=== PATIENT | female | born 1950 | race Caucasian/White ===

== ENCOUNTER 2017-01-31 21:59 | Emergency (ER) | payer OTHER, MEDICARE ==
[~2017-01-31] VITALS: Ht 167.6 cm; Wt 115.7 kg
[~2017-01-31 21:59] MED LIST: ESOM2.5S PO; LIP10 PO
[2017-01-31 22:06] VITALS: BP_SYST 160
[2017-01-31 23:46] VITALS: BP_SYST 152
== END 2017-01-31 23:46 | disposition home or self-care (01) ==
LOC: SED 21:59
DX: S80.812A Abrasion, left lower leg, initial encounter (principal); K21.9 Gastro-esophageal reflux disease without esophagitis; I10 Essential (primary) hypertension; I48.91 Unspecified atrial fibrillation; E78.00 Pure hypercholesterolemia, unspecified; Z90.710 Acquired absence of both cervix and uterus; Z88.0 Allergy status to penicillin; W50.4XXA Accidental scratch by another person, initial encounter; Y93.89 Activity, other specified; Y92.89 Other specified places as the place of occurrence of the external cause; Y99.8 Other external cause status
CPT/HCPCS: 99283

== ENCOUNTER 2017-12-14 16:32 | Inpatient (IN) | payer OTHER, MEDICARE ==
[~2017-12-14] VITALS: Ht 167.6 cm; Wt 112.9 kg
[2017-12-14 18:07] VITALS: BP_SYST 134
[2017-12-14] MEDS ORDERED: LIP10 PO (18:45)
[2017-12-14] MEDS ORDERED: COR6.25 PO (18:45)
[2017-12-14] MEDS ORDERED: ALPR0.25 PO (18:46)
[2017-12-14] MEDS ORDERED: ESOM20TA PO (18:46)
[2017-12-14] MEDS ORDERED: RIVA20TA PO (18:46)
[2017-12-14] MEDS ORDERED: LOSA1TAB3 PO (18:46)
[2017-12-14] MEDS ORDERED: VANCOMYCIN HCL 1 GM/NS PREMIX 250 ML IV SCH (19:45)
[2017-12-14] MEDS ORDERED: NS 500 ML IV ONE (19:45)
[2017-12-14 20:00] VITALS: BP_SYST 120
[2017-12-14] MEDS ORDERED: VANCOMYCIN HCL 1000 MG/VIAL IV ONE (20:18)
[2017-12-14] MEDS ORDERED: LEVOFLOXACIN 500 MG/D5W 100 ML IV ONE (20:19)
[2017-12-14 20:25] LABS: BASOPHILS # (AUTO) 0.1 K/uL (0.0-0.2); BASOPHILS % (AUTO) 0.6 % (0.0-2.0); EOSINOPHILS # (AUTO) 0.1 K/uL (0.0-0.4); EOSINOPHILS % (AUTO) 1.4 % (0.0-4.0); HEMATOCRIT 33.7 % (36-48); HEMOGLOBIN 10.9 g/dL (12.0-16.0); LYMPHOCYTES % (AUTO) 11.8 % (20.5-51.5); MEAN CORPUSCULAR HEMOGLOBIN 29 pg (27-31); MEAN CORPUSCULAR HGB CONC 32 % (32-36); MEAN CORPUSCULAR VOLUME 88 fL (79.0-98.0); MONOCYTES # (AUTO) 0.4 K/uL (0.0-1.0); MONOCYTES % (AUTO) 5.2 % (1.7-9.3); PLATELET COUNT (AUTO) 284 K/uL (130-430); RED BLOOD CELL COUNT(AUTO) 3.81 MIL/uL (4.2-6.2); RED CELL DISTRIBUTION WIDTH 13.5 % (9.0-15.0); WHITE BLOOD COUNT (AUTO) 8.6 K/uL (4.8-10.8)
[2017-12-14 20:32] LABS: CALCIUM 9.3 mg/dL (8.4-11.0); CREATININE 1.1 mg/dL (0.55-1.30); POTASSIUM 4.1 mmol/L (3.5-5.1)
[2017-12-14 20:36] LABS: ALBUMIN 3.5 g/dL (3.4-4.8); TOTAL BILIRUBIN 0.5 mg/dL (0.0-1.0)
[2017-12-14 21:04] LABS: ERYTHROCYTE SEDIMENTATION RATE 33 MM/HR (0-20)
[2017-12-14] MEDS: NACL 0.9% 1,000 ML IV SCH (21:25)
[2017-12-14] MEDS ORDERED: LEVOFLOXACIN 500 MG/D5W 100 ML IV SCH (22:00)
[2017-12-15 00:42] VITALS: BP_SYST 122
[2017-12-15] MEDS: NACL 0.9% 1,000 ML IV SCH ×2 (05:02→17:04)
[2017-12-15 06:12] LABS: BASOPHILS % (AUTO) 0.2 % (0.0-2.0); EOSINOPHILS # (AUTO) 0.1 K/uL (0.0-0.4); HEMOGLOBIN 9.6 g/dL (12.0-16.0); LYMPHOCYTES # (AUTO) 1.1 K/uL (1.0-5.5); RED CELL DISTRIBUTION WIDTH 13.4 % (9.0-15.0)
[2017-12-15 06:48] LABS: CALCIUM 8.4 mg/dL (8.4-11.0); CREATININE 1.11 mg/dL (0.55-1.30); POTASSIUM 3.8 mmol/L (3.5-5.1)
[2017-12-15 06:49] LABS: HEMATOCRIT 30.2 % (36-48); LYMPHOCYTES % (AUTO) 18.2 % (20.5-51.5); MEAN CORPUSCULAR HEMOGLOBIN 28 pg (27-31); MEAN CORPUSCULAR HGB CONC 32 % (32-36); MEAN CORPUSCULAR VOLUME 88 fL (79.0-98.0); MONOCYTES # (AUTO) 0.5 K/uL (0.0-1.0); MONOCYTES % (AUTO) 8.8 % (1.7-9.3); NEUTROPHILS # (AUTO) 4.4 K/uL (1.8-7.7); NEUTROPHILS % (AUTO) 70.8 % (40.0-70.0); PLATELET COUNT (AUTO) 238 K/uL (130-430); RED BLOOD CELL COUNT(AUTO) 3.43 MIL/uL (4.2-6.2); WHITE BLOOD COUNT (AUTO) 6.1 K/uL (4.8-10.8)
[2017-12-15 08:00] VITALS: BP_SYST 148
[2017-12-15] MEDS: ATORVASTATIN 10 MG TABLET PO SCH (08:17)
[2017-12-15] MEDS: CARVEDILOL 6.25 MG TABLET (COREG) PO SCH ×2 (08:17→20:33)
[2017-12-15] MEDS: HYDROCHLOROTHIAZIDE 12.5 MG CAPSULE (HCTZ) PO SCH (08:18)
[2017-12-15] MEDS: ALPRAZolam 0.25 MG TABLET PO SCH ×2 (08:18→20:33)
[2017-12-15] MEDS: LOSARTAN POTASSIUM 50 MG TABLET (COZAAR) PO SCH (08:18)
[2017-12-15] MEDS: PANTOPRAZOLE SODIUM 40 MG TAB PO SCH (08:18)
[2017-12-15] MEDS: RIVAROXABAN 10 MG TABLET PO SCH (08:20)
[2017-12-15] MEDS: VANCOMYCIN HCL 1,000 MG in NS 250 ML IV SCH ×2 (08:26→20:34)
[2017-12-15] MEDS ORDERED: LOSARTAN PO SCH (09:00)
[2017-12-15] MEDS ORDERED: HYDROCHLOROTHIAZIDE PO SCH (09:00)
[2017-12-15 11:20] VITALS: BP_SYST 99
[2017-12-15 15:11] VITALS: BP_SYST 123
[2017-12-15] MEDS: CLINDAMYCIN 600 MG in D5W 50 ML IV SCH ×2 (17:04→22:47)
[2017-12-15] MEDS: HYDROcodone/ACETAMIN 5-325 MG TAB (NORCO/ VICODIN) PO PRN (17:04)
[2017-12-15 20:00] VITALS: BP_SYST 149
[2017-12-15 23:41] VITALS: BP_SYST 111
[2017-12-16] MEDS: NACL 0.9% 1,000 ML IV SCH ×3 (01:16→17:12)
[2017-12-16] MEDS: CLINDAMYCIN 600 MG in D5W 50 ML IV SCH ×3 (05:03→22:49)
[2017-12-16 08:00] VITALS: BP_SYST 128
[2017-12-16] MEDS: VANCOMYCIN HCL 1,000 MG in NS 250 ML IV SCH ×2 (08:44→20:46)
[2017-12-16] MEDS: CARVEDILOL 6.25 MG TABLET (COREG) PO SCH ×2 (08:45→20:45)
[2017-12-16] MEDS: ALPRAZolam 0.25 MG TABLET PO SCH ×2 (08:45→20:44)
[2017-12-16] MEDS: PANTOPRAZOLE SODIUM 40 MG TAB PO SCH (08:45)
[2017-12-16] MEDS: ATORVASTATIN 10 MG TABLET PO SCH (08:45)
[2017-12-16] MEDS: HYDROCHLOROTHIAZIDE 12.5 MG CAPSULE (HCTZ) PO SCH (08:45)
[2017-12-16] MEDS: LOSARTAN POTASSIUM 50 MG TABLET (COZAAR) PO SCH (08:46)
[2017-12-16] MEDS: RIVAROXABAN 10 MG TABLET PO SCH (08:47)
[2017-12-16] MEDS ORDERED: ATORVASTATIN 10 MG TABLET PO SCH (09:00)
[2017-12-16] MEDS: HYDROcodone/ACETAMIN 5-325 MG TAB (NORCO/ VICODIN) PO PRN (11:54)
[2017-12-16 12:00] VITALS: BP_SYST 122
[2017-12-16 16:00] VITALS: BP_SYST 102
[2017-12-16 20:00] VITALS: BP_SYST 139
[2017-12-16 23:32] VITALS: BP_SYST 126
[2017-12-17] MEDS: CLINDAMYCIN 600 MG in D5W 50 ML IV SCH ×3 (05:57→21:10)
[2017-12-17] MEDS: NACL 0.9% 1,000 ML IV SCH ×2 (06:03→17:49)
[2017-12-17 07:03] LABS: ALBUMIN 2.6 g/dL (3.4-4.8); CALCIUM 8.8 mg/dL (8.4-11.0); CREATININE 1.15 mg/dL (0.55-1.30); POTASSIUM 4.3 mmol/L (3.5-5.1); TOTAL BILIRUBIN 0.4 mg/dL (0.0-1.0)
[2017-12-17 08:00] VITALS: BP_SYST 126
[2017-12-17] MEDS: VANCOMYCIN HCL 1,000 MG in NS 250 ML IV SCH ×2 (09:03→21:36)
[2017-12-17] MEDS: ALPRAZolam 0.25 MG TABLET PO SCH (09:03)
[2017-12-17] MEDS: PANTOPRAZOLE SODIUM 40 MG TAB PO SCH (09:04)
[2017-12-17] MEDS: CARVEDILOL 6.25 MG TABLET (COREG) PO SCH ×2 (09:04→21:18)
[2017-12-17] MEDS: HYDROCHLOROTHIAZIDE 12.5 MG CAPSULE (HCTZ) PO SCH (09:04)
[2017-12-17] MEDS: LOSARTAN POTASSIUM 50 MG TABLET (COZAAR) PO SCH (09:05)
[2017-12-17] MEDS: LACTOBACILLUS RHAMNOSUS GG 1 CAP CAPSULE PO SCH ×2 (09:05→21:11)
[2017-12-17] MEDS: ATORVASTATIN 10 MG TABLET PO SCH (09:05)
[2017-12-17] MEDS: RIVAROXABAN 10 MG TABLET PO SCH (09:10)
[2017-12-17] MEDS ORDERED: ALPRAZolam 0.25 MG TABLET PO PRN (09:15)
[2017-12-17 12:13] VITALS: BP_SYST 118
[2017-12-17 16:50] VITALS: BP_SYST 114
[2017-12-17 19:54] VITALS: BP_SYST 137
[2017-12-18 00:58] VITALS: BP_SYST 134
[2017-12-18] MEDS: HYDROcodone/ACETAMIN 5-325 MG TAB (NORCO/ VICODIN) PO PRN ×3 (02:38→18:02)
[2017-12-18] MEDS: NACL 0.9% 1,000 ML IV SCH ×2 (02:39→14:32)
[2017-12-18] MEDS: CLINDAMYCIN 600 MG in D5W 50 ML IV SCH ×2 (05:29→14:29)
[2017-12-18 07:46] VITALS: BP_SYST 127
[2017-12-18] MEDS: ATORVASTATIN 10 MG TABLET PO SCH (08:34)
[2017-12-18] MEDS: LACTOBACILLUS RHAMNOSUS GG 1 CAP CAPSULE PO SCH (08:34)
[2017-12-18] MEDS: PANTOPRAZOLE SODIUM 40 MG TAB PO SCH (08:34)
[2017-12-18] MEDS: VANCOMYCIN HCL 1,000 MG in NS 250 ML IV SCH (08:34)
[2017-12-18] MEDS: CARVEDILOL 6.25 MG TABLET (COREG) PO SCH (08:35)
[2017-12-18] MEDS: LOSARTAN POTASSIUM 50 MG TABLET (COZAAR) PO SCH (08:35)
[2017-12-18] MEDS: HYDROCHLOROTHIAZIDE 12.5 MG CAPSULE (HCTZ) PO SCH (08:36)
[2017-12-18] MEDS: RIVAROXABAN 10 MG TABLET PO SCH (08:38)
[2017-12-18 11:03] VITALS: BP_SYST 124
[2017-12-18] MEDS ORDERED: BALSAM PERU/CASTOR OIL 60 GM OINT...G. TP ONE (13:00)
[2017-12-18 15:26] VITALS: BP_SYST 134
[2017-12-18 17:38] VITALS: BP_SYST 134
[2017-12-18 19:42] VITALS: BP_SYST 154
[2017-12-19] MEDS ORDERED: BALSAM PERU/CASTOR OIL 60 GM OINT...G. TP SCH (09:00)
== END 2017-12-18 19:42 | DRG 603 ==
LOC: SMU 17:50
PROVIDERS: ADMIT Internal Medicine; ATTEND Internal Medicine
DX: L03.115 Cellulitis of right lower limb (principal); Z68.41 Body mass index [BMI] 40.0-44.9, adult; A46 Erysipelas; I10 Essential (primary) hypertension; E78.5 Hyperlipidemia, unspecified; E66.9 Obesity, unspecified; I83.93 Asymptomatic varicose veins of bilateral lower extremities; B95.62 Methicillin resistant Staphylococcus aureus infection as the cause of diseases classified elsewhere; I48.91 Unspecified atrial fibrillation; Z90.710 Acquired absence of both cervix and uterus; Z79.899 Other long term (current) drug therapy; Z79.01 Long term (current) use of anticoagulants; Z88.0 Allergy status to penicillin
CPT/HCPCS: 36415; 80048; 80053; 80202-TC; 83605; 85025; 85651-TC; 87040-TC; 93923; 93970; J1956; J3370; J3490; J7030; J7040; J7050; J7060

== ENCOUNTER 2020-05-12 13:05 | Outpatient (CLI) | payer OTHER, MEDICARE ==
[~2020-05-12 13:05] MED LIST changes: +ALPR0.25 PO; +COR6.25 PO; -ESOM2.5S PO; +LOSA1TAB3 PO; +RIVA20TA PO
== END 2020-05-12 20:07 | disposition home or self-care (01) ==
LOC: SRD 13:05 → SMA 20:07
PROVIDERS: ATTEND Family Medicine
DX: Z12.31 Encounter for screening mammogram for malignant neoplasm of breast (principal); T14.90XA Injury, unspecified, initial encounter; M47.814 Spondylosis without myelopathy or radiculopathy, thoracic region; M25.532 Pain in left wrist; X58.XXXA Exposure to other specified factors, initial encounter; Y93.89 Activity, other specified; Y92.89 Other specified places as the place of occurrence of the external cause; Y99.8 Other external cause status; N64.89 Other specified disorders of breast
CPT/HCPCS: 71046-TC; 77067

== ENCOUNTER 2020-05-25 12:43 | Outpatient (CLI) | payer OTHER, MEDICARE | END 2020-05-25 20:57 | disposition home or self-care (01) | LOC: SRD 12:43 | PROVIDERS: ATTEND Internal Medicine | DX: M47.814 Spondylosis without myelopathy or radiculopathy, thoracic region (principal); R52 Pain, unspecified; I51.7 Cardiomegaly; M41.84 Other forms of scoliosis, thoracic region; M81.0 Age-related osteoporosis without current pathological fracture; I25.10 Atherosclerotic heart disease of native coronary artery without angina pectoris | CPT/HCPCS: 72072-TC ==